=== PATIENT | male | born 1980 | race African-American/Black ===

== ENCOUNTER 2021-04-19 18:12 | Emergency (ER) | payer OTHER ==
[~2021-04-19] VITALS: Ht 182.9 cm; Wt 81.2 kg
[~2021-04-19 18:12] MED LIST: PHENERGAN 25 MG25 M1 PO; ZOFRAN ODT4 MG PO
[2021-04-19 18:37] LABS: ABSOLUTE NEUTROPHILS 2.9 thou/uL (1.4-8.2); EOSINOPHILS 1.6 % (0.0-3.0); HEMOGLOBIN 10.7 gm/dL (14.0-18.0); LYMPHOCYTES 33.6 % (24.0-44.0); MCH 25.6 pg (26.0-34.0); MCHC 32.3 g/dL (28.0-37.0); MCV 79.4 fL (80.0-100.0); MONOCYTES 9.4 % (1.0-8.0); PLATELET COUNT 376 thou/uL (150-400); POLYS 54.4 % (36.0-66.0); RBC 4.16 mil/uL (4.50-6.00); RDW 17.2 % (10.5-14.5); WBC 5.3 thou/uL (4.0-11.0)
[2021-04-19 18:43] LABS: CALCIUM 8.3 mg/dL (8.5-10.1); CREATININE 0.9 mg/dL (0.7-1.3); POTASSIUM 3.9 mmol/L (3.5-5.1)
[2021-04-19] MEDS ORDERED: NOHOMEMEDICATIONS (18:43)
[2021-04-19 18:51] LABS: ALBUMIN 3.3 g/dL (3.4-5.0); TOTAL BILIRUBIN 0.4 mg/dL (0.2-1.0); TOTAL PROTEIN 6.6 g/dL (6.4-8.2)
[2021-04-19 19:20] VITALS: BP 140/71
== END 2021-04-19 20:00 | disposition home or self-care (01) ==
LOC: ER 18:12
PROVIDERS: Emergency Medicine
DX: M62.82 Rhabdomyolysis (principal); G89.29 Other chronic pain; R10.84 Generalized abdominal pain; F17.210 Nicotine dependence, cigarettes, uncomplicated; Z88.0 Allergy status to penicillin